=== PATIENT | female | born 1960 | race Caucasian/White ===

== ENCOUNTER 2016-12-10 20:49 | Emergency (ER) ==
[2016-12-10 21:00] VITALS: TEMP 98.2; BMI 30.3
[2016-12-10 21:17] LABS: BILIRUBIN,URINE Negative (NEGATIVE); KETONES,URINE Trace (NEGATIVE); LEUKOCYTE ESTERASE ,URINE 2+ (NEGATIVE); NITRITE,URINE Negative (NEGATIVE); PROTEIN,URINE Negative (NEGATIVE); URINE, BLOOD Trace-intact (NEGATIVE)
[2016-12-10 21:19] LABS: ADD URINE MICROSCOPIC YES
[2016-12-10 21:20] LABS: BASOPHILS # (AUTO) 0.1 K/uL (0-0.2); BASOPHILS % (AUTO) 0.8 % (0.0-3.0); EOSINOPHILS % (AUTO) 8.8 % (0.0-7.0); HEMATOCRIT 38.9 % (37.0-47.0); HEMOGLOBIN 13.6 g/dl (12.0-16.0); IMMATURE GRANULOCYTE % (AUTO) 0.2 % (0.0-5.0); LYMPHOCYTES # (AUTO) 2.8 K/uL (0.60-3.4); MEAN CORPUSCULAR VOLUME 88.6 fl (81.0-99.0); MONOCYTES # (AUTO) 0.9 K/uL (0.4-2.0); MONOCYTES % (AUTO) 7.6 (0-10); NEUTROPHILS # (AUTO) 6.9 K/ul (2.0-6.9); NEUTROPHILS % (AUTO) 58.6; PLATELET COUNT 234 10^3/uL (140-440); RED BLOOD COUNT 4.39 10^6/ul (4.20-5.40); WHITE BLOOD COUNT 11.77 K/ul (4.6-10.2)
[2016-12-10] MEDS: SODIUM CHLORIDE 1,000 ML IV STA (21:27)
[2016-12-10 21:31] LABS: BACTERIA,URINE 1+ (NOT PRESENT)
[2016-12-10 21:41] LABS: ALBUMIN 4.6 g/dL (3.4-5.0); ALBUMIN/GLOBULIN RATIO 1.28; BILIRUBIN,TOTAL 0.79 mg/dL (0.00-1.20); BUN/CREATININE RATIO 16.43; CALCIUM 10.1 mg/dL (8.2-10.2); CREATININE 0.73 mg/dL (0.60-1.30); TOTAL PROTEIN 8.2 g/dL (6.4-8.2)
[2016-12-10 22:27] LABS: ERYTHROCYTE SEDIMENTATION RATE 35 mm/hr (0-20); ESR INTERNAL QC INTERNAL QC VALID
--- NOTE | 2016-12-10 23:08 | CT ---
EXAM: CT of the abdomen and pelvis with IV contrast. HISTORY: Lower abdominal pain and fever. PROCEDURE: After the intravenous injection of contrast contiguous axial CT images of the abdomen an d pelvis were obtained with coronal and sagittal reformats. FINDINGS: The liver is normal in appearance. There is a small noncalcified gallstone in the fundus of the gallbladder. The gallbladder is within normal limits in size. The pancreas, spleen, adrenal glands and left kidney are normal in appearance. There is a nonobstructive calcification in the righ t kidney. The abdominal aorta is within normal limits in diameter. The appendix is not visualized. There is diverticulosis of the colon. There is a fat density ovoid structure adjacent to the proxim al sigmoid colon measuring 2 x 3 cm with adjacent inflammatory stranding suspicious for epiploic shreya endagitis. No free fluid or free air in the abdomen or pelvis. The bladder is adequately filled wit h no abnormality identified. The uterus is unremarkable. There are degenerative changes in the spi ne. Impression: 2 x 3 cm fat density ovoid structure adjacent to the proximal sigmoid colon with adjacen t inflammatory stranding, suspicious for epiploic appendagitis. The differential diagnosis includes diverticulitis. Diverticulosis of the colon. Cholelithiasis as described. Nonobstructive right nephrolithiasis.
--- NOTE | 2016-12-10 23:19 | ED.PDOC ---
General ED Provider: Dr. PINO BROCK-ER Chief Complaint: Abdominal Pain Stated Complaint: im hurting Time Seen by Physician: 20:55 Mode of Arrival: Walk-In Information Source: Patient, Family Exam Limitations: No limitations Primary Care Provider: PINO BROCK Nursing and Triage Documentation Reviewed and Agree: Yes GI Complaint Exam - Abdominal Pain Complaint/Exam Onset: Gradual Duration: several hours Symptoms Are: Still present Timing: Constant Initial Severity: Mild Current Severity: Moderate Location of Pain: Discrete, LLQ Radiates To: Reports: Back Character: Reports: Dull, Aching Aggravating: Reports: None Associated Signs and Symptoms: Reports: Fever, Nausea. Denies: Diaphoresis, Cough, Chest pain, Dizziness, Back pain, Constipation, Blood in stool, Dysuria, Urinary frequency, Decreased urine output, Decreased appetite, Vaginal bleeding , Vaginal discharge, Vomiting, Diarrhea, Sore throat, Decreased activity Ovarian Torsion Risk Factors: Reports: None Surgical Obstruction Risk Factors: Reports: None Related Surgical History: Reports: None Differential Diagnoses: Other Review of Systems - Review Of Systems Constitutional: Reports: No symptoms Eyes: Reports: No symptoms Ears, Nose, Mouth, Throat: Reports: No symptoms Respiratory: Reports: No symptoms Cardiac: Reports: No symptoms GI: Reports: Abdominal pain : Reports: No symptoms Musculoskeletal: Reports: No symptoms Skin: Reports: No symptoms Neurological: Reports: No symptoms Endocrine: Reports: No symptoms Hematologic/Lymphatic: Reports: No symptoms All Other Systems: Reviewed and Negative Past Medical History - Past Medical History Endocrine: Reports: Unknown Cardiovascular: Reports: Unknown Respiratory: Reports: Unknown Hematological: Reports: Unknown Gastrointestinal: Reports: Unknown Genitourinary: Reports: Unknown Neuro/Psych: Reports: Unknown Musculoskeletal: Reports: Unknown Cancer: Reports: Unknown Last Menstrual Period: 10 yrs - Surgical History General Surgical History: Reports: Unknown - Family History Family History: Reports: Unknown - Social History Smoking Status: Current every day smoker Hx Substance Use: No Alcohol Screening: Occasionally Physical Exam - Physical Exam Appearance: Well-appearing, No pain distress, Well-nourished Pain Distress: Moderate Eyes: CHEL[place], EOMI, Conjunctiva clear ENT: Ears normal, Nose normal, Oropharynx normal Neck: Supple Respiratory: Airway patent, Breath sounds clear, Breath sounds equal, Respirations nonlabored Cardiovascular: RRR GI/: Soft, Nontender, No masses, Bowel sounds normal, No Organomegaly Musculoskeletal: Normal strength, ROM intact, No edema, No calf tenderness Skin: Warm, Dry, Normal color Neurological: Sensation intact, Motor intact, Reflexes intact, Cranial nerves intact, Alert, Oriented Psychiatric: Affect appropriate, Mood appropriate Interpretation - Radiology Interpretation Radiology Interpretation By: Radiologist Radiology Results: Positive Exam Interpreted: CT Scan Critical Care Note - Critical Care Note Total Time (mins): 0 Course - Course Hematology/Chemistry: 12/10/16 21:14 12/10/16 21:14 Orders, Labs, Meds: Lab Review 12/10/16 12/10/16 21:10 21:14 WBC 11.77 H RBC 4.39 Hgb 13.6 Hct 38.9 MCV 88.6 MCH 31.0 MCHC 35.0 RDW Coeff of Dre 12.8 Plt Count 234 Immature Gran % (Auto) 0.2 Neut % (Auto) 58.6 Lymph % (Auto) 24.0 Daniels % (Auto) 7.6 Eos % (Auto) 8.8 H Baso % (Auto) 0.8 Immature Gran # (Auto) 0.0 Neut # 6.9 Lymph # 2.8 Daniels # 0.9 Eos # 1.0 H Baso # 0.1 ESR 35 H Sodium 143 Potassium 4.0 Chloride 104 Carbon Dioxide 26 Anion Gap 17.0 BUN 12 Creatinine 0.73 Estimated GFR (MDRD) 82.00 BUN/Creatinine Ratio 16.43 Glucose 95 Calcium 10.1 Total Bilirubin 0.79 AST 17 ALT 20 Alkaline Phosphatase 76 Total Protein 8.2 Albumin 4.6 Globulin 3.6 Albumin/Globulin Ratio 1.28 Amylase 28 Lipase 16 Urine Color Yellow Urine Clarity Clear Urine pH 6.0 Ur Specific [place] 1.015 Urine Protein Negative Urine Glucose (UA) Negative Urine Ketones Trace Urine Blood Trace-intact Urine Nitrite Negative Urine Bilirubin Negative Urine Urobilinogen 0.2 Ur Leukocyte Esterase 2+ Urine Microscopic RBC 2-5 Urine Microscopic WBC 10-20 Ur Squamous Epith Cells 5-10 Urine Bacteria 1+ Orders Category Date Time Status NPO REMINDER: IMAGING ONCE CARE 12/10/16 20:57 Completed ED IV/MEDIPORT/POWERPORT .ONCE EMERGENCY 12/10/16 20:56 Active AMYLASE Stat LAB 12/10/16 21:14 Completed BLOOD CULTURE Stat LAB 12/10/16 21:14 Received CBC W/ AUTO DIFF Stat LAB 12/10/16 21:14 Completed COMPREHENSIVE METABOLIC PANEL Stat LAB 12/10/16 21:14 Completed ESR Stat LAB 12/10/16 21:14 Completed LIPASE Stat LAB 12/10/16 21:14 Completed URINALYSIS C & S IF INDICATED Stat LAB 12/10/16 21:10 Completed URINE CULTURE Routine LAB 12/10/16 21:31 Received 0.9 % Sodium Chloride [Saline Flush] MEDS 12/10/16 20:56 Ordered 1 syr IVF PRN PRN Sodium Chloride 0.9% [Sodium Chloride] 1,000 ml MEDS 12/10/16 20:56 Active IV 100 mls/hr CT ABDOMEN/PELVIS W/WO CONTRAS Stat RADS 12/10/16 20:57 Completed Medications Generic Name Dose Route Start Last Admin Trade Name Freq PRN Reason Stop Dose Admin Sodium Chloride 1,000 mls @ 100 mls/hr 12/10/16 20:56 12/10/16 21:27 Sodium Chloride IV 12/11/16 06:55 100 mls/hr .Q10H STA Administration Sodium Chloride 1 syr 12/10/16 20:56 Saline Flush IVF PRN PRN To flush IV Vital Signs: Temp Pulse Resp BP Pulse Ox 12/10/16 20:50 98.2 F 85 20 146/89 H 96 Departure - Departure Time of Disposition: 23:20 Disposition: TSF SHORT-TRM HOSP Discharge Problem: Epiploic appendagitis Instructions: Abdominal Pain (ED) Condition: Good Pt referred to PMD for follow-up: Yes Allergies/Adverse Reactions: Allergies erythromycin base [Erythromycin Base] Adverse Reaction (Verified 12/10/16 21:00) Penicillins Adverse Reaction (Verified 12/10/16 21:00) Home Medications: Ambulatory Orders Lisinopril 10 mg PO DAILY 12/10/16 Transfer Form Completed: Yes Disposition Discussed With: Patient, Family
[2016-12-10 23:26] VITALS: BP 145/90
== END 2016-12-10 23:42 | disposition short-term general hospital (02) ==
LOC: ED 20:49
DX: K63.89 Other specified diseases of intestine (principal); F17.210 Nicotine dependence, cigarettes, uncomplicated
CPT/HCPCS: 36415; 80053; 81001; 82150; 83690; 85025; 85651; 87040; 87086; 96360; 96361; 99285

== ENCOUNTER 2017-09-22 08:45 | Outpatient (CLI) ==
[2017-09-22 09:23] LABS: CREATININE 0.73 mg/dL (0.60-1.30)
--- NOTE | 2017-09-22 17:05 | MRI ---
EXAM: MRI left hip without and with contrast. HISTORY: Left hip mass. Area of lump marked. Patient states "lump feels deep in the muscle".. TECHNIQUE: Using a body phased array coil on a high field strength magnet multiplanar multisequence large and small field of view imaging obtained through the level of the left hip joint pre and post i ntravenous gadolinium contrast administration. 16 ml of gadolinium contrast administered for the exa mination. Note a marker was placed over the lateral soft tissues just below the level of the left hi p in the patient's reported area of mass.. COMPARISON: MRI left hip 05/19/2010. Two-view plain film examination left hip 04/21/2000 tendon. C T abdomen and pelvis 12/10/2016. FINDINGS: Visualized bone marrow signal intensity of the sacrum, pelvis, and proximal femora shows n o acute fracture, stress fracture or discrete lytic or blastic lesion. Both femoral heads seated with normal lateral coverage and femoral head sphericity. No joint centere d subchondral bone marrow edema or bone erosions. In correlation there is mild bilateral hip osteoar throsis. Physiologic amount of fluid both hip joints. Left gluteus minimus / medius tendinosis/stra in. Left greater trochanteric bursitis. The muscle bulk of the pelvis and surrounding both hips oth erwise symmetric. Both proximal hamstring origins intact with tendinosis. Course of the right and l eft sciatic nerves normal in appearance along their course. A marker is seen over the lateral soft tissues to the left hip joint space slightly posterior and inf erior. Directly underlying the marker there is normal appearance of the soft tissue fat. No discret e soft tissue mass or fluid collection identified. Postcontrast imaging markedly limited secondary to the lack of homogeneous fat suppression as well as artifact.. Uterus remains. Bladder of normal morphology. No enlarged inguinal lymphadenopathy or bowel herniat ion. Incidental note of Tarlov cysts over the level of the sacrum.. IMPRESSION: Marker placed over the soft tissues lateral to the left hip. Left gluteus minimus / medi us tendinosis/strain. Left greater trochanteric bursitis. No discrete soft tissue mass or fluid rupal ection identified beneath marker. Mild bilateral hip osteoarthrosis. Bilateral proximal hamstring origin tendinosis. Tarlov cysts over the level of the sacrum.
== END 2017-09-22 08:46 | disposition home or self-care (01) ==
LOC: RAD 08:45
PROVIDERS: ATTEND Family Medicine
DX: R22.42 Localized swelling, mass and lump, left lower limb (principal)
CPT/HCPCS: 36415; 82565